=== PATIENT | female | born 1955 | race Caucasian/White ===

== ENCOUNTER 2019-01-11 17:07 | Observation (INO) | payer OTHER ==
[2019-01-11] MEDS ORDERED: Sodium Chloride 0.9% 10 ML Syringe FLUSH PRN (17:28)
[2019-01-11] MEDS ORDERED: Sodium Chloride 0.9% 1,000 ML IV ONE ×2 (17:30→19:37)
[2019-01-11] MEDS ORDERED: Ondansetron 4 MG/2 ML SDV IVPUSH ONE ×2 (17:30→19:36)
[2019-01-11] MEDS ORDERED: HYDROmorphone 1 MG/ML Syringe IVPUSH ONE (17:31)
--- NOTE | 2019-01-11 17:37 | EDM.PDOC ---
<Yohannes Barrera W - Last Filed: 01/11/19 18:55> ED HPI GENERAL MEDICAL PROBLEM - General Chief Complaint: Abdominal Pain Stated Complaint: STOMACH PAIN Time Seen by Provider: 01/11/19 17:20 Source of Information: Reports: Patient History Limitations: Reports: No Limitations - History of Present Illness INITIAL COMMENTS - FREE TEXT/NARRATIVE: Pt. presents to ER with complaints of severe abdominal pain, nausea, and vomiting. She states that she has been experiencing this discomfort intermittently for the past several weeks and states that it has gotten worse in the last 2 days. Denies fever or chills. No chest pain or shortness of breath. Pt. states that she was able to run a mile and a half today which she normally does, thinking that might help the discomfort. Her only previous abdominal surgery was oophorectomy many years ago. She still have her gallbladder and appendix. Denies any blood in stools. She states that she has vomited 4 times today. She has had some loose stools but this is normal according to the patient, who states she takes aloe vera and is vegan. Pt. states that she has noticed some masses to the area of the LLQ particularly if she is bearing down. Onset Date: 01/11/19 Middle Abdomen Pain Score (Numeric/FACES): 10 - Related Data Allergies Allergy/AdvReac Type Severity Reaction Status Date / Time Penicillins Allergy Abdominal Verified 01/11/19 17:30 Pain Home Meds: Home Meds Aloe Vera 0 mg PO DAILY 01/11/19 [History] Past Medical History - Past Health History Medical/Surgical History: Denies Medical/Surgical History ED ROS GENERAL - Review of Systems Review Of Systems: See Below Constitutional: Reports: No Symptoms. Denies: Fever, Chills, Malaise, Weakness , Fatigue HEENT: Reports: No Symptoms Respiratory: Reports: No Symptoms Cardiovascular: Reports: No Symptoms Endocrine: Reports: No Symptoms GI/Abdominal: Reports: Abdominal Pain, Diarrhea, Decreased Appetite, Distension (See HPI), Nausea, Vomiting. Denies: Black Stool, Bloody Stool, Constipation, Hematemesis, Hematochezia, Melena : Reports: No Symptoms Musculoskeletal: Reports: No Symptoms Skin: Reports: No Symptoms Neurological: Reports: No Symptoms Psychiatric: Reports: No Symptoms Hematologic/Lymphatic: Reports: No Symptoms Immunologic: Reports: No Symptoms ED EXAM, GENERAL - Physical Exam Exam: See Below Exam Limited By: No Limitations General Appearance: Alert, WD/WN, No Apparent Distress Head: Atraumatic, Normocephalic Neck: Normal Inspection, Supple, Non-Tender, Full Range of Motion Respiratory/Chest: No Respiratory Distress, Lungs Clear, Normal Breath Sounds, No Accessory Muscle Use, Chest Non-Tender Cardiovascular: Normal Peripheral Pulses, Regular Rate, Rhythm, No Edema, No Gallop, No JVD, No Murmur GI/Abdominal: Soft, Guarding, Tender, Mass (occasionally palpable in LLQ particularly when patient bears down). No: Rebound (Female) Exam: Deferred Rectal (Female) Exam: Deferred Back Exam: Normal Inspection, Full Range of Motion Extremities: Normal Inspection, Normal Range of Motion, Non-Tender, No Pedal Edema, Normal Capillary Refill Neurological: Alert, Oriented, CN II-XII Intact, Normal Cognition, Normal Gait, Normal Reflexes, No Motor/Sensory Deficits Psychiatric: Normal Affect, Normal Mood Skin Exam: Warm, Dry, Intact, Normal Color, No Rash Course - Vital Signs Last Recorded V/S: Last Vital Signs Temp 36.9 C 01/11/19 21:03 Pulse 49 L 01/11/19 21:03 Resp 18 01/11/19 21:03 BP 128/53 L 01/11/19 21:03 Pulse Ox 100 01/11/19 21:03 - Orders/Labs/Meds Orders: Active Orders 24 hr Category Date Time Status Sodium Chloride 0.9% [Saline Flush] Med 01/11/19 17:28 Active 10 ml FLUSH ASDIRECTED PRN Peripheral IV Insertion Adult [OM.PC] Routine Oth 01/11/19 17:29 Ordered Medication Orders Sodium Chloride (Saline Flush) 10 ml FLUSH ASDIRECTED PRN PRN Reason: Keep Vein Open Labs: Laboratory Tests 01/11/19 01/11/19 01/11/19 Range/Units 18:02 18:02 18:02 WBC 7.1 (4.0-10.0) x10^3/uL RBC 3.56 L (4.00-5.50) x10^6/uL Hgb 12.5 (12.0-16.0) g/dL Hct 37.1 (33.0-47.0) % MCV 104.2 H (78.0-93.0) fL MCH 35.1 H (26.0-32.0) pg MCHC 33.7 (32.0-36.0) g/dL RDW Coeff of Le 11.7 (10.0-15.0) % Plt Count 190 (130-400) x10^3/uL Neut % (Auto) 84.9 H (50.0-80.0) % Lymph % (Auto) 10.9 L (25.0-50.0) % [place] % (Auto) 4.0 (2.0-11.0) % Eos % (Auto) 0.1 (0.0-4.0) % Baso % (Auto) 0.1 L (0.2-1.2) % PT 11.7 (10.0-12.8) SEC INR 1.0 L (2.0-3.5) Sodium 137 (136-145) mmol/L Potassium 4.8 (3.5-5.1) mmol/L Chloride 100 (98-107) mmol/L Carbon Dioxide 26 (21-32) mmol/L Anion Gap 15.8 (10-20) mmol/L BUN 12 (7-18) mg/dL Creatinine 0.6 (0.55-1.02) mg/dL Est Cr Clr Drug Dosing TNP Estimated GFR (MDRD) > 60 Glucose 85 (74-106) mg/dL Lactic Acid (0.4-2.0) mmol/L Calcium 9.2 (8.5-10.1) mg/dL Corrected Calcium 9.20 (8.5-10.1) mg/dL Phosphorus 3.8 (2.6-4.7) mg/dL Magnesium 2.0 (1.8-2.4) mg/dL Total Bilirubin 0.6 (0.2-1.0) mg/dL AST 32 (15-37) U/L ALT 50 (14-59) U/L Alkaline Phosphatase 62 (46-116) U/L C-Reactive Protein < 0.2 (<=0.9) mg/dL Total Protein 8.1 (6.4-8.2) g/dL Albumin 4.0 (3.4-5.0) g/dL Globulin 4.1 Albumin/Globulin Ratio 0.98 Amylase 134 H (25-115) U/L Lipase 453 H (73-393) U/L TSH, Ultra Sensitive 2.943 (0.358-3.74) uIU/mL Urine Color (YELLOW) Urine Appearance (CLEAR) Urine pH (5.0-8.0) Ur Specific [place] Urine Protein (NEGATIVE) mg/dL Urine Glucose (UA) (NEGATIVE) mg/dL Urine Ketones (NEGATIVE) mg/dL Urine Occult Blood (NEGATIVE) Urine Nitrite (NEGATIVE) Urine Bilirubin (NEGATIVE) Urine Urobilinogen (0.2) EU/dL Ur Leukocyte Esterase (NEGATIVE) Urine RBC (NOT SEEN) /HPF Urine WBC (NOT SEEN) /HPF Ur Squamous Epith Cells (NEGATIVE) /HPF Urine Bacteria (NEGATIVE) /HPF Urine Mucus (NEGATIVE) /LPF 01/11/19 01/11/19 Range/Units 18:02 19:04 WBC (4.0-10.0) x10^3/uL RBC (4.00-5.50) x10^6/uL Hgb (12.0-16.0) g/dL Hct (33.0-47.0) % MCV (78.0-93.0) fL MCH (26.0-32.0) pg MCHC (32.0-36.0) g/dL RDW Coeff of Le (10.0-15.0) % Plt Count (130-400) x10^3/uL Neut % (Auto) (50.0-80.0) % Lymph % (Auto) (25.0-50.0) % [place] % (Auto) (2.0-11.0) % Eos % (Auto) (0.0-4.0) % Baso % (Auto) (0.2-1.2) % PT (10.0-12.8) SEC INR (2.0-3.5) Sodium (136-145) mmol/L Potassium (3.5-5.1) mmol/L Chloride (98-107) mmol/L Carbon Dioxide (21-32) mmol/L Anion Gap (10-20) mmol/L BUN (7-18) mg/dL Creatinine (0.55-1.02) mg/dL Est Cr Clr Drug Dosing Estimated GFR (MDRD) Glucose (74-106) mg/dL Lactic Acid 1.0 (0.4-2.0) mmol/L Calcium (8.5-10.1) mg/dL Corrected Calcium (8.5-10.1) mg/dL Phosphorus (2.6-4.7) mg/dL Magnesium (1.8-2.4) mg/dL Total Bilirubin (0.2-1.0) mg/dL AST (15-37) U/L ALT (14-59) U/L Alkaline Phosphatase (46-116) U/L C-Reactive Protein (<=0.9) mg/dL Total Protein (6.4-8.2) g/dL Albumin (3.4-5.0) g/dL Globulin Albumin/Globulin Ratio Amylase (25-115) U/L Lipase (73-393) U/L TSH, Ultra Sensitive (0.358-3.74) uIU/mL Urine Color Dark yellow H (YELLOW) Urine Appearance Clear (CLEAR) Urine pH 7.0 (5.0-8.0) Ur Specific [place] 1.015 Urine Protein Negative (NEGATIVE) mg/dL Urine Glucose (UA) Negative (NEGATIVE) mg/dL Urine Ketones Negative (NEGATIVE) mg/dL Urine Occult Blood Negative (NEGATIVE) Urine Nitrite Negative (NEGATIVE) Urine Bilirubin Negative (NEGATIVE) Urine Urobilinogen 0.2 (0.2) EU/dL Ur Leukocyte Esterase Trace H (NEGATIVE) Urine RBC 0-5 (NOT SEEN) /HPF Urine WBC 0-5 (NOT SEEN) /HPF Ur Squamous Epith Cells Rare (NEGATIVE) /HPF Urine Bacteria Not seen (NEGATIVE) /HPF Urine Mucus Rare H (NEGATIVE) /LPF Meds: Medications Generic Name Dose Route Start Last Admin Trade Name Freq PRN Reason Stop Dose Admin Sodium Chloride 10 ml 01/11/19 17:28 Saline Flush FLUSH ASDIRECTED PRN Keep Vein Open Discontinued Medications Generic Name Dose Route Start Last Admin Trade Name Freq PRN Reason Stop Dose Admin Diatrizoate Meglum/Diatrizoate Sod 10 ml 01/11/19 19:45 01/11/19 20:26 Gastrografin 37% PO 01/11/19 20:46 10 ml Q30M ANALISA Administration Hydromorphone HCl 1 mg 01/11/19 17:31 01/11/19 18:09 Dilaudid IVPUSH 01/11/19 17:32 Not Given ONETIME ONE Sodium Chloride 1,000 mls @ 1,000 mls/hr 01/11/19 17:30 01/11/19 17:58 Normal Saline IV 01/11/19 18:29 1,000 mls/hr .BOLUS ONE Administration Sodium Chloride 1,000 mls @ 999 mls/hr 01/11/19 19:37 01/11/19 19:41 Normal Saline IV 01/11/19 20:37 999 mls/hr ONETIME ONE Administration Iopamidol 100 ml 01/11/19 18:41 01/11/19 18:53 Isovue-300 (61%) IVPUSH 01/11/19 18:42 100 ml ONETIME ONE Administration Magnesium Citrate 296 ml 01/11/19 22:16 Citrate Of Magnesia PO 01/11/19 22:17 ONETIME ONE Ondansetron HCl 4 mg 01/11/19 17:30 01/11/19 17:58 Zofran IVPUSH 01/11/19 17:31 4 mg ONETIME ONE Administration Ondansetron HCl 4 mg 01/11/19 19:36 01/11/19 19:40 Zofran IVPUSH 01/11/19 19:37 4 mg ONETIME ONE Administration Polyethylene Glycol 17 gm 01/11/19 22:17 Miralax PO 01/11/19 22:18 ONETIME ONE Departure - Departure Disposition: Home, Self-Care 01 Clinical Impression: Constipation by delayed colonic transit Abdominal pain Qualifiers: Abdominal location: generalized Qualified Code(s): R10.84 - Generalized abdominal pain - Discharge Information <Ronald Jason - Last Filed: 01/11/19 22:24> Course - Radiology Interpretation Free Text/Narrative:: CT Abd/Pelvis w/ IV contrast: See scanned report in EMR for details CT Abd/Pelvis w/ Oral contrast: See scanned report in EMR for details CT Results Date: 01/11/19 CT Results Time: 19:33 - Re-Assessments/Exams Free Text/Narrative Re-Assessment/Exam: 01/11/19 19:30 CT scan discussed with Dr. Steve Draper. Recommendation made to repeat study with oral contrast. (See first CT report in EMR for details). Discussed with patient who agrees with repeating the study. First CT results discussed with patient as well. Free Text/Narrative Re-Assessment/Exam: 01/11/19 22:11 Called to patient's room because patient decided not to be admitted. She states she will take care of her "problems" by herself. Provider again discussed all treatment options and the recommend coarse of treatment, ie admission due to the severity of impaction. Patient states she just wants to know what she can do at home to take care of this. Thoroughly and extensively discussed OTC products, staying well hydrated, foods, etc., that patient can do. She became belligerent and complained about "this town" not having any place to pick up operator medications "at this time of night." I did offer admission again as a treatment option, but patient adamantly refused. She raised her voice in disgust. I offered what was medically necessary and patient states "I will take care of it myself." Patient was offered pain medication, but this was declined. Departure - Departure Time of Disposition: 22:19 Condition: Good - Discharge Information *PRESCRIPTION DRUG MONITORING PROGRAM REVIEWED*: Not Applicable *COPY OF PRESCRIPTION DRUG MONITORING REPORT IN PATIENT [place]IZ[place]: Not Applicable ED Communication - ED Communication Date/Time Date: 01/11/19 Time Called: 21:25 - Discussed Case With (1) Discussed Case With (1): Outpatient Provider (Dr. Finley, Dr. Charles [facility] Hospitalist) Person/s Notified (2): Niko Marley Date: 01/11/19 Time Called: 21:56 - Problem List Review Problem List Initiated/Reviewed/Updated: Yes - Assessment/Plan Assessment:: Abdominal Pain Severe Constipation Plan: Case discussed with Dr. Charles, Dr. Finley, and Dr. Marley regarding the patients CT scan results. All agree the patient has severe constipation and secondary elevated lipase/amylase. Need IVF, MiraLax, and disimpaction. Patient is a full code. Patient does wish to be transferred to a higher level of care should the need arise.
--- NOTE | 2019-01-11 18:03 | CR ---
[id number] RAD/RAD Abdomen 3V EXAM: RAD Abdomen 3V INDICATION: ABDOMINAL PAIN COMPARISON: None. DISCUSSION: Unobstructed bowel gas pattern. No radiographically evident pneumoperitoneum. Large amount of retained stool within the colon. The lungs are clear. Old bilateral rib fractures. IMPRESSION: Large amount of retained stool within the colon. No evidence of obstruction. Steve Draper DO 01/11/19 1809 Thank you for allowing us to participate in the care of your patient.
[2019-01-11 18:37] LABS: CHLORIDE,CL 100 mmol/L (98-107); SODIUM,NA 137 mmol/L (136-145)
[2019-01-11 18:39] LABS: ANION GAP 15.8 mmol/L (10-20)
[2019-01-11] MEDS ORDERED: Iopamidol 612 MG/ML 100 ML Bottle IVPUSH ONE (18:41)
--- NOTE | 2019-01-11 19:37 | CT ---
[id number] CT/CT Abdomen Pelvis W IV EXAM: CT Abdomen Pelvis W IV CLINICAL DATA: ABD PAIN, ? BOWEL OBSTRUCTION COMPARISON STUDY: None. FINDINGS: Calcified granuloma at the right lung base. Multiple pneumatoceles seen bilaterally. Evaluation is limited secondary to a paucity of intra-abdominal fat and lack of oral contrast. There is periportal edema, mesenteric edema and small to moderate volume ascites. There appears to be a fluid collection within the right lower quadrant measuring 4.1 x 2.6 cm containing fluid and gas. This could also represent a short segment loop of small bowel. Additionally there appears to be extensive matted bowel within the abdomen without oral contrast. Peritoneal implants can also have this appearance. The appendix is not well-visualized. No free air. There is a large amount of stool within the colon. There is focal fat along the falciform ligament. The gallbladder is distended The pancreas demonstrates slight loss of its normal lobulations. No definite evidence of acute pancreatitis. Calcifications within the left adrenal gland and spleen suggest prior granulomatous disease. The right adrenal gland is unremarkable. The kidneys are unremarkable. IMPRESSION: Evaluation is limited by a paucity of intra-abdominal fat and lack of oral contrast. There is periportal edema, mesenteric edema and small to moderate volume ascites. Additionally there is question of intra-abdominal fluid collection within the right lower quadrant. This could also represent fluid within small bowel. The appendix is not well-visualized secondary to the above and acute appendicitis with possible perforation is not completely excluded. Additionally there is increased nodular soft tissue density along the anterior abdominal wall which could represent matted bowel though peritoneal implants are not excluded. There is a large amount of retained stool within the colon. Findings were discussed with the ordering provider and repeat CT with oral contrast, unless the patient has an acute abdomen, is recommended for more definitive evaluation. Steve Draper DO 01/11/19 1936 Thank you for allowing us to participate in the care of your patient.
[2019-01-11] MEDS: Diatrizoate Meglumine/Diatrizoate Sodium 37% 30 ML Bottle PO SCH ×3 (19:42→20:26)
--- NOTE | 2019-01-11 21:02 | CT ---
[id number] CT/CT Abdomen Pelvis W IV EXAM: CT Abdomen Pelvis W IV CLINICAL DATA: ABD PAIN; N/V COMPARISON STUDY: CT abdomen pelvis with IV contrast only from earlier today FINDINGS: CT abdomen pelvis was repeated with oral contrast. Again evaluation is difficult given the paucity of intra-abdominal fat. Unfortunately, the oral contrast has only transited to the proximal jejunum. However, the questionable fluid collection from the earlier study is no longer evident suggesting that this was in fact fluid-filled small bowel. Additionally the prominent soft tissue findings within the anterior abdominal wall appear to in fact have been matted bowel. There is small moderate free fluid especially within the right paracolic gutter. Additionally there is mesenteric and periportal edema. The appendix is not well-visualized. No evidence of small bowel obstruction. Large amount of stool within the colon. Again there is subtle loss of the normal lobulations of the pancreas. In the setting of increased amylase and lipase, this could represent acute pancreatitis. IMPRESSION: As above. Steve Draper DO 01/11/19 7930 Thank you for allowing us to participate in the care of your patient.
[2019-01-11] MEDS ORDERED: Magnesium Citrate Solution 296 ML Bottle PO ONE (22:16)
[2019-01-11] MEDS ORDERED: Polyethylene Glycol 3350 Powder 17 GM Packet PO ONE (22:17)
[2019-01-11] MEDS ORDERED: Take Home: Ondansetron 4 MG Tab.DIS, 2 Tab Pack PO ONE (22:24)
== END 2019-01-11 22:00 ==
LOC: VM.ED 17:07 → VM.MS 22:00
PROVIDERS: ADMIT Nurse Practitioner Family; ATTEND Nurse Practitioner Family
DX: R10.84 Generalized abdominal pain (principal); K59.00 Constipation, unspecified; Z88.0 Allergy status to penicillin; Z79.899 Other long term (current) drug therapy
CPT/HCPCS: 36415; 74022; 74177; 80053; 81001; 82150; 83605; 83690; 83735; 84100; 84443; 85025; 85610; 86140; 96361; 96374; 96376; 99284-25; A9270-GY; J2405; J7030; Q9963; Q9967

== ENCOUNTER 2019-02-13 09:40 | Day surgery (SDC) | payer OTHER ==
[~2019-02-13 09:40] MED LIST: Lactated Ringers 1,000 ML IV SCH
[2019-02-13] MEDS ORDERED: Sodium Phosphate,Monobasic/Sodium Phosphate,Dibasic Enema 133 ML Bottle RECTAL ONE (11:03)
[2019-02-13] MEDS ORDERED: Midazolam 1 MG/ML 2 ML SDV IVPUSH PRN (12:46)
[2019-02-13] MEDS ORDERED: fentaNYL 100 MCG/2 ML SDV ONE (12:51)
[2019-02-13] MEDS ORDERED: Propofol 200 MG/20 ML SDV ONE (12:51)
--- NOTE | 2019-02-13 14:53 | OR ---
PREOPERATIVE DIAGNOSES: 1. Abnormal CAT scan. 2. Elevated CEA. POSTOPERATIVE DIAGNOSIS: Normal colonoscopic exam. Poor bowel prep with not 100% visualization. PROCEDURE PROPOSED: Total flexible colonoscopy. PROCEDURE DONE: Total flexible colonoscopy. INDICATION: This is a 63-year-old female, who presented with some abdominal pain, was seen in the emergency room. A CAT scan revealed some fluid around the liver. Some blood tests were obtained. She had an elevated CEA, and she was referred for colonoscopy. TECHNIQUE: The patient was brought to the endoscopy suite and placed in left lateral decubitus position. She was sedated per TELEGRAPHIC SERVICE DISPATCHER with propofol. The flexible video colonoscope was then passed transanally and under visualization advanced to the cecum. She was found to have a lot of thick fluid with fibrous debris throughout the colon. I was able to irrigate and suction a lot of these areas, but there was not 100% visualization, but I felt confident there were certainly no tumorous mass. A small polyp could certainly have been missed, but the examination revealed no signs of any colon masses throughout the ascending, transverse, descending, sigmoid, and rectal colon. There were no signs of any diverticulosis or colitis or other visible abnormalities. FINAL IMPRESSION: Normal colonoscopic exam with poor bowel prep. PLAN: It was felt that adequate visualization was obtained to rule out a tumor. A small polyp could have been missed. I feel that her CEA should be re- evaluated again and should probably be repeated soon and then again in 3 months and see if there is any trend to her CEA. Her CAT scan did not reveal any mass in the pancreas, and she should follow up with Dr. Niko Manjarrez. SCM: 02/13/2019 14:30:40 MODL: 02/13/2019 14:45:54 /[id number]
== END 2019-02-13 15:18 ==
LOC: VM.SDS 09:40
PROVIDERS: ATTEND Surgery
DX: R97.0 Elevated carcinoembryonic antigen [CEA] (principal); R10.9 Unspecified abdominal pain; R93.5 Abnormal findings on diagnostic imaging of other abdominal regions, including retroperitoneum; Z83.71 Family history of colonic polyps; Z79.899 Other long term (current) drug therapy
CPT/HCPCS: 45378; J2250; J2704; J3010; J7120